=== PATIENT | female | born 2005 | race Caucasian/White ===

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

== ENCOUNTER 2023-01-08 19:10 | Emergency (ER) | payer MEDICAID, SELFPAY ==
[2023-01-08 19:20] VITALS: BP 154/85; PULSE 76; RESP 20; TEMP 36.8; O2SAT 96; BMI 37.8
[2023-01-08 19:31] LABS: Microscopic, Urine URINE MICROSCOPIC (MICROSCOPIC)
--- NOTE | 2023-01-08 19:35 | EXP.UTC ---
Discharge Plan Disposition Patient Disposition: Home, Self-Care Condition: Good Prescriptions Prescriptions: New cephalexin 500 mg capsule 500 mg PO BID 5 Days Qty: 10 0RF phenazopyridine [Pyridium] 200 mg tablet 200 mg PO Q8H 2 Days Qty: 6 0RF No Action Tubersol 5 tub. unit /0.1 mL solution 0.1 ml intradermal ONCE Qty: 0.1 0RF phentermine [Adipex-P] 37.5 mg tablet 37.5 mg PO DAILY Qty: 30 0RF Rx Instructions: must administer 30 minutes before or 1-2 hours after breakfast Referrals Follow up/Referrals: Kari Rudd PA [Primary Care Provider] - See instructions Activity Restrictions/Add. Instructions Additional Instructions/Restrictions: *Increase fluids. Water not Soda or Tea *Start antibiotic immediately and be sure to take as ordered for the FULL length of time although you should start to see improvement over the next 48 hours *Pyridium as needed Remember this medication will turn your urine . This is normal but it will stain what ever it gets on *You should not use Pyridium for more than 48 hours. If so , follow up with your primary physician to review urine culture and ensure that antibiotic is adequate for infection *Be SURE to follow up anytime for new or worsening symptoms with your family doctor. AND in 48 hours for urine culture results with your family doctor, if you do not have a doctor then you may call back to the [facility] for urine culture results and further treatment. We do recommend that you choose and establish care with a Primary Care Physician. ?AND follow up with them ?in 10-14 days to repeat UA to ensure infection is resolved and blood no longer present *Be sure to let your PCP know that we sent urine cultures from the [facility] so they can follow up to ensure that you area the on the correct antibiotic Call your doctor office and make appointment for 48 hours (2 days from today) ?to follow up and get the results of your urine culture and further treatment Clinical Impressions Clinical Impression: UTI (urinary tract infection) Qualifiers: Urinary tract infection type: site unspecified Hematuria presence: with hematuria Qualified Code(s): N39.0 - Urinary tract infection, site not specified; R31.9 - Hematuria, unspecified Instructions Patient Instructions: DI for Urinary Tract Infection (UTI), Urinary Tract Infection Discharge ED Provider: [place] [facility] [place] General Stated complaint: sore throat, fever Mode of Arrival: Ambulatory Source of Information: Patient Limitations: No Limitations Time Seen by Provider: 01/08/23 19:35 Description of Symptoms (Recalled from Triage Doc. by RN): PATIENT C/O SORE THROAT AND FEVER THAT STARTED TODAY AND BURNING WITH URINATION THAT STARTED LAST NIGHT HEENT Symptoms (Recalled from RN notes): Yes Resp Symptoms (Recalled from RN notes): No Skin Symptoms (Recalled from RN notes): No MS Symptoms (Recalled from RN notes): No Functional Status (Recalled from RN notes): WNL History of Present Illness Provider Complaint: Patient states that last night she started with some burning with urination and feeling of urgency and frequency, today she woke up having fever and sore throat States that this evening she wasnt feeling any better so she came in to get checked Related Data Previous Rx's Medication Instructions Recorded phentermine 37.5 mg tablet 37.5 mg PO DAILY #30 tabs 01/04/23 (Adipex-P) cephalexin 500 mg capsule 500 mg PO BID 5 days #10 caps 01/08/23 phenazopyridine 200 mg tablet 200 mg PO Q8H pain 2 days #6 tabs 01/08/23 (Pyridium) Allergies Allergy/AdvReac Type Severity Reaction Status Date / Time No Known Allergies Allergy Verified 01/04/23 14:31 Worker's Comp Is this a Worker's Comp case?: No [facility] Disclaimer: The information contained in this section may have been updated after the patient was seen, as this information can be updated by other users. Medical History (Reviewed 11/16/22 @ 15:06
[2023-01-08 19:40] VITALS: BP 154/85; PULSE 76; RESP 20; TEMP 36.8; O2SAT 96
[2023-01-08 19:40] LABS: UTC Strep Screen (Rapid) Negative (Negative)
[2023-01-08 19:41] LABS: Appearance,Urine SL CLOUDY (Clear); Blood, Urine TRACE-I (Negative); Color,Urine YELLOW (Yellow); Glucose,Urine (UA) Negative (Negative); Ketones,Urine TRACE (Negative); Leukocyte Esterase,Urine 1+ (Negative); Nitrate,Urine Negative (Negative); PH,Urine 6.5 (5.0-8.5); Protein,Urine TRACE (Negative); Specific Gravity, Urine 1.025 (1.005-1.030)
[2023-01-08 19:43] LABS: Bilirubin,Urine 1+ (Negative)
[2023-01-08 22:05] LABS: RBC,Urine Occasional #/hpf (0-3)
[2023-01-08 22:06] LABS: Bacteria,Urine 1+ /lpf
== END 2023-01-08 19:55 | disposition home or self-care (01) ==
PROVIDERS: Emergency Provider Nurse Practitioner; PCP Physician Assistant
DX: N39.0 Urinary tract infection, site not specified (principal); B96.89 Other specified bacterial agents as the cause of diseases classified elsewhere; R31.9 Hematuria, unspecified; R50.9 Fever, unspecified; R07.0 Pain in throat; J45.909 Unspecified asthma, uncomplicated
CPT/HCPCS: 81001; 87086; 87880; 99212; 99214; G0463

== ENCOUNTER 2023-03-01 15:03 | Emergency (ER) | payer MEDICAID, SELFPAY ==
[2023-03-01 15:10] VITALS: BP 108/69; PULSE 75; RESP 20; TEMP 37.3; O2SAT 96; BMI 33.0
--- NOTE | 2023-03-01 15:24 | EXP.UTC ---
Discharge Plan Disposition Patient Disposition: Home, Self-Care Condition: Good Prescriptions Prescriptions: New fluticasone propionate [Flonase Allergy Relief] 50 mcg/actuation spray,suspension 1 - 2 spray intranasal DAILY Qty: 16 0RF Rx Instructions: administer into each nostril daily No Action Tubersol 5 tub. unit /0.1 mL solution 0.1 ml intradermal ONCE Qty: 0.1 0RF phentermine [Adipex-P] 37.5 mg tablet 37.5 mg PO DAILY Qty: 30 0RF Rx Instructions: must administer 30 minutes before or 1-2 hours after breakfast Referrals Follow up/Referrals: Kari Rudd PA [Primary Care Provider] - See instructions Activity Restrictions/Add. Instructions Additional Instructions/Restrictions: Use Flonase as prescribed Watch areas on hands may spread to other areas of the body Follow up with Dermatology or Family Doctor if symptoms do not improve or if they worsen Return if needed Straight to ER if any life threatening symptoms Clinical Impressions Clinical Impression: Viral rash Instructions Patient Instructions: Hand, Foot, and Mouth Disease, Fluticasone Nasal [place] Discharge ED Provider: Jess Dolan [facility] General Stated complaint: poison Hali and Left ear pain Mode of Arrival: Ambulatory Source of Information: Patient Limitations: No Limitations Time Seen by Provider: 03/01/23 15:25 Description of Symptoms (Recalled from Triage Doc. by RN): PATIENT C/O SMALL BLISTER-LIKE AREAS TO HANDS AND FACE X 2 DAYS. PATIENT ALSO C/O RINGING IN RIGHT EAR WITH SOME DRAINAGE THAT HAS BEEN GOING ON FOR A WHILE HEENT Symptoms (Recalled from RN notes): Yes Resp Symptoms (Recalled from RN notes): No Skin Symptoms (Recalled from RN notes): Yes MS Symptoms (Recalled from RN notes): No Functional Status (Recalled from RN notes): WNL History of Present Illness Provider Complaint: Mother states that teen has been having some small red blister like areas popping up on her hands, arms and face around mouth that are itchy and painful at times with scratchy throat States that she has also been having some ringing in her left ear with pain at times and feels like it is draining Related Data Previous Rx's Medication Instructions Recorded phentermine 37.5 mg tablet 37.5 mg PO DAILY #30 tabs 02/06/23 (Adipex-P) fluticasone propionate 50 1 - 2 spray intranasal DAILY #16 03/01/23 mcg/actuation nasal grams spray,suspension (Flonase Allergy Relief) Allergies Allergy/AdvReac Type Severity Reaction Status Date / Time No Known Allergies Allergy Verified 02/06/23 16:39 Worker's Comp Is this a Worker's Comp case?: No [facility] Disclaimer: The information contained in this section may have been updated after the patient was seen, as this information can be updated by other users. Medical History Asthma Social History Smoking Status: Never smoker alcohol intake: never substance use type: denies use current occupational status: employed and student Travel in the last 8 weeks: None housing: house ROS Obtained: Yes All systems reviewed & no additional complaints except as documented and Yes Systems reviewed as appropriate & no additional complaints except as documented Constitutional Constitutional: Reports system reviewed and no additional complaints, except as documented and Reports as per HPI ENT Ears, Nose, Mouth, and Throat: Reports system reviewed and no additional complaints, except as documented, Reports as per HPI, Reports otalgia and Reports sore throat Cardiovascular Cardiovascular: Reports system reviewed and no additional complaints, except as documented Respiratory Respiratory: Reports system reviewed and no additional complaints, except as documented and Reports as per HPI Gastrointestinal Gastrointestingal: Reports system reviewed and no additional complaints, e
[2023-03-01 15:27] VITALS: BP 108/69; PULSE 75; RESP 20; TEMP 37.3; O2SAT 96
== END 2023-03-01 15:36 | disposition home or self-care (01) ==
PROVIDERS: Emergency Provider Nurse Practitioner; PCP Physician Assistant
DX: B08.4 Enteroviral vesicular stomatitis with exanthem (principal); J45.909 Unspecified asthma, uncomplicated
CPT/HCPCS: 99212; 99214; G0463

== ENCOUNTER 2023-07-28 15:09 | Emergency (ER) | payer MEDICAID, SELFPAY ==
[2023-07-28 15:20] VITALS: BP 128/75; PULSE 66; RESP 20; TEMP 36.9; O2SAT 98; BMI 38.9
--- NOTE | 2023-07-28 15:35 | ED_ITS ---
Discharge Plan Disposition Patient Disposition: Home, Self-Care Condition: Good Prescriptions Prescriptions: New piqjvdbmxvbvvec-xhbabrkow-UZ [Bromfed DM] 2-30-10 mg/5 mL syrup 10 ml PO Q4-6H PRN (Reason: cold symptoms) Qty: 200 0RF No Action Tubersol 5 tub. unit /0.1 mL solution 0.1 ml intradermal ONCE Qty: 0.1 0RF phentermine [Adipex-P] 37.5 mg tablet 37.5 mg PO DAILY Qty: 30 0RF Rx Instructions: must administer 30 minutes before or 1-2 hours after breakfast fluticasone propionate [Flonase Allergy Relief] 50 mcg/actuation spray,suspension 1 - 2 spray intranasal DAILY Qty: 16 0RF Rx Instructions: administer into each nostril daily Referrals Follow up/Referrals: Kari Rudd PA [Primary Care Provider] - See instructions Clinical Impressions Clinical Impression: Acute upper respiratory infection Instructions Patient Instructions: DI for Viral Upper Respiratory Infection -- Adult Discharge ED Provider: Jane Black [facility] [place] General Stated complaint: fever, stuffy nose, pain under eyes Mode of Arrival: Ambulatory Source of Information: Patient Limitations: No Limitations Time Seen by Provider: 07/28/23 15:35 Description of Symptoms (Recalled from Triage Doc. by RN): PATIENT C/O SORE THROAT, SINUS PRESSURE AND FEVER X 3 DAYS HEENT Symptoms (Recalled from RN notes): Yes Resp Symptoms (Recalled from RN notes): No Skin Symptoms (Recalled from RN notes): No MS Symptoms (Recalled from RN notes): No Functional Status (Recalled from RN notes): WNL History of Present Illness Provider Complaint: Pt reports cough, sore throat, sinus pressure and fever for the last 3 days. She states that she had a temp of 102.3 last night and then 99.3 this morning. She reports that she took a Tylenol 1 1/2 hrs ago. 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 Related Data Previous Rx's Medication Instructions Recorded phentermine 37.5 mg tablet 37.5 mg PO DAILY #30 tabs 02/06/23 (Adipex-P) fluticasone propionate 50 1 - 2 spray intranasal DAILY #16 03/01/23 mcg/actuation nasal grams spray,suspension (Flonase Allergy Relief) jmyufxfcxalalcs-twptpmvrgxmppzx-EO 10 ml PO Q4-6H PRN cold symptoms 07/28/23 2 mg-30 mg-10 mg/5 mL oral syrup #200 mL (Bromfed DM) Allergies Allergy/AdvReac Type Severity Reaction Status Date / Time No Known Allergies Allergy Verified 02/06/23 16:39 Worker's Comp Is this a Worker's Comp case?: No PFSH [facility] Disclaimer: The information contained in this section may have been updated after the patient was seen, as this information can be updated by other users. Medical History Asthma Social History Smoking Status: Never smoker alcohol intake: never substance use type: denies use current occupational status: employed and student Travel in the last 8 weeks: None housing: house ROS Obtained: Yes All systems reviewed & no additional complaints except as documented Constitutional Constitutional: Reports system reviewed and no additional complaints, except as documented, Reports fever(s) and Reports malaise Eyes Eyes: Reports system reviewed and no additional complaints, except as documented ENT Ears, Nose, Mouth, and Throat: Reports system reviewed and no additional complaints, except as documented, Reports nasal congestion, Reports nasal discharge, Reports sinus pain, Reports sinus pressure and Reports sore throat Cardiovascular Cardiovascular: Reports system reviewed and no additional complaints, except as documented Respiratory Respiratory: Reports system reviewed and no additional complaints, except as documented and Reports non-productive cough Gastrointestinal Gastrointestingal: Reports system reviewed and no additional complaints, except as documented Genitourinary Female Genitourinary: Reports system reviewed and no additional complaints, except as documented Musculoskeletal Musculoskeletal: Reports system reviewed and no additional complaints, except as documented Integumentary/Breasts Skin/Breast: Reports system reviewed and no additional complaints, except as documented Neurologic Neurologic: Reports system reviewed and no additional complaints, except as documented Endocrine Endocrine: Reports system reviewed and no additional complaints, except as documented Hematologic/Lymphatic Henatologic/Lymphatic: Reports system reviewed and no additional complaints, except as documented Allergic/Immunologic Allergic/Immunologic: Reports system reviewed and no additional complaints, except as documented Physical Exam General General appearance: alert Comment: ill appearing Head Head exam: atraumatic and normocephalic Eye Eye exam: Present normal appearance ENT ENT exam: Present mucous membranes moist Expanded ENT Exam External ear exam: Present normal external inspection Nose exam: Present sinus tenderness (frontal and maxillary) Nasal speculum exam: Bilateral: purulent discharge Mouth exam: Present normal external inspection and tongue normal Teeth exam: Present normal inspection Throat exam: Present tonsillar erythema Neck Neck exam: Present normal inspection Chest Chest inspection: Present normal inspection and symmetric chest wall rise Respiratory Respiratory exam: Present normal lung sounds bilaterally Cardiovascular Cardiovascular exam: Present regular rate, normal rhythm and normal heart sounds Abdominal Exam Abdominal exam: Present soft and normal bowel sounds Extremities Exam Extremities exam: Present normal inspection Back Exam Back exam: Present normal inspection Neurological Exam Neurological exam: Present alert and oriented X3 Psychiatric Psychiatric exam: Present normal affect and normal mood Skin Skin exam: Present warm, dry and intact Lymphatic Lymphatic Findings: no adenopathy Medical Decision Making Jesus Inquiry Pt receiving controlled substance: No Jesus was queried for this patient: No Vital Signs: 07/28/23 15:20 Temperature 98.5 F Temperature Source Oral Pulse Rate [Left Brachial] 66 Respiratory Rate 20 Blood Pressure [Left Arm] 128/75 Blood Pressure Mean [Left Arm] 92 Blood Pressure Source [Left Arm] Automatic Cuff Blood Pressure Position [Left Arm] Sitting 02 Sat by Pulse Oximetry 98 Oxygen Delivery Method Room Air Lab Data Lab results reviewed: Yes I reviewed the patient's lab results.
[2023-07-28 15:40] LABS: UTC Strep Screen (Rapid) Negative (Negative)
[2023-07-28 15:41] VITALS: BP 128/75; PULSE 66; RESP 20; TEMP 36.9; O2SAT 98
[2023-07-28 16:05] LABS: Adenovirus,PCR Not Detected (NotDetected); Coronavirus 19, PCR Not Detected (NotDetected); Coronavirus 229E Not Detected (NotDetected); Coronavirus NL63 Not Detected (NotDetected); Coronavirus OC43 Not Detected (NotDetected); Coronovirus HKU1,PCR Not Detected (NotDetected); Human Metapneumovirus Not Detected (NotDetected); Influenza A, PCR Not Detected (NotDetected); Influenza AH1, 2009 Not Detected (NotDetected); Influenza AH1, PCR Not Detected (NotDetected); Influenza AH3,PCR Not Detected (NotDetected); Influenza B, PCR Not Detected (NotDetected); Parainfluenza 1, PCR Not Detected (NotDetected); Parainfluenza 2, PCR Not Detected (NotDetected); Parainfluenza 3, PCR Not Detected (NotDetected); Parainfluenza 4, PCR Not Detected (NotDetected); Respiratory Syncytial Virus Not Detected (NotDetected)
[2023-07-28 17:22] LABS: Rhinovirus/Enterovirus Detected (NotDetected)
== END 2023-07-28 16:00 | disposition home or self-care (01) ==
PROVIDERS: Emergency Provider Nurse Practitioner Family; PCP Physician Assistant
DX: R05.9 Cough, unspecified (principal); B34.1 Enterovirus infection, unspecified; J06.9 Acute upper respiratory infection, unspecified
CPT/HCPCS: 87632; 87635; 87880; 99212; 99214; G0463

== ENCOUNTER 2023-08-05 13:29 | Emergency (ER) | payer MEDICAID, SELFPAY ==
[2023-08-05 14:20] VITALS: BP 123/82; PULSE 62; RESP 16; TEMP 36.7; O2SAT 100; BMI 37.1
--- NOTE | 2023-08-05 14:28 | ED_ITS ---
Discharge Plan Disposition Patient Disposition: Home, Self-Care Condition: Good Prescriptions Prescriptions: New azithromycin [Zithromax] 250 mg tablet 250 mg PO UD DOSE PK Qty: 6 0RF Rx Instructions: Take two (2) tablets today, then one (1) tablet days #2 thru #5 methylprednisolone 4 mg Tablets,Dose Pack 4 mg PO DIRECTED 6 Days Qty: 21 0RF Rx Instructions: Take 1 pack as directed for 6 days kljyeomsylvfqiw-sfjddeyxr-RZ [Bromfed DM] 2-30-10 mg/5 mL Syrup 5 ml PO Q6H PRN (Reason: Cough) Qty: 240 0RF No Action Tubersol 5 tub. unit /0.1 mL solution 0.1 ml intradermal ONCE Qty: 0.1 0RF phentermine [Adipex-P] 37.5 mg tablet 37.5 mg PO DAILY Qty: 30 0RF Rx Instructions: must administer 30 minutes before or 1-2 hours after breakfast fluticasone propionate [Flonase Allergy Relief] 50 mcg/actuation spray,suspension 1 - 2 spray intranasal DAILY Qty: 16 0RF Rx Instructions: administer into each nostril daily fdzqkhfzefapaep-kmhkgrwjt-NH [Bromfed DM] 2-30-10 mg/5 mL syrup 10 ml PO Q4-6H PRN (Reason: cold symptoms) Qty: 200 0RF Referrals Follow up/Referrals: Kari Rudd PA [Primary Care Provider] - See instructions Activity Restrictions/Add. Instructions Additional Instructions/Restrictions: Drink plenty of fluids. Take tylenol or ibuprofen for pain or fever. Take the medications as directed. Follow up with your regular doctor. GO TO THE ER FOR ANY WORSENING SYMPTOMS Clinical Impressions Clinical Impression: Sinusitis Stand Alone Forms Stand Alone Forms: Work/School Release Instructions Patient Instructions: DI for Sinusitis, Sinusitis Discharge ED Provider: Devyn Courtney [facility] General Stated complaint: pressure around eyes, fever Time Seen by Provider: 08/05/23 14:28 History of Present Illness Provider Complaint: She states that for the past 2 days she has had low grade fever, chills, malaise, and sinus congestion. Related Data Previous Rx's Medication Instructions Recorded phentermine 37.5 mg tablet 37.5 mg PO DAILY #30 tabs 02/06/23 (Adipex-P) fluticasone propionate 50 1 - 2 spray intranasal DAILY #16 03/01/23 mcg/actuation nasal grams spray,suspension (Flonase Allergy Relief) qftkdnybtghtcbi-pdepukozpebyezl-WP 10 ml PO Q4-6H PRN cold symptoms 07/28/23 2 mg-30 mg-10 mg/5 mL oral syrup #200 mL (Bromfed DM) azithromycin 250 mg tablet 250 mg PO UD DOSE PK #6 tabs 08/05/23 (Zithromax) ebpjddxoqwzipqu-zrdvknqoxzrbkja-ZL 5 ml PO Q6H PRN Cough #240 mL 08/05/23 2 mg-30 mg-10 mg/5 mL oral syrup (Bromfed DM) methylprednisolone 4 mg tablets in 4 mg PO DIRECTED 6 days #21 tabs 08/05/23 a dose pack Allergies Allergy/AdvReac Type Severity Reaction Status Date / Time No Known Allergies Allergy Verified 02/06/23 16:39 [facility] Disclaimer: The information contained in this section may have been updated after the patient was seen, as this information can be updated by other users. Medical History Asthma Social History Smoking Status: Never smoker alcohol intake: never substance use type: denies use current occupational status: employed and student Travel in the last 8 weeks: None housing: house ROS Obtained: Yes All systems reviewed & no additional complaints except as documented Constitutional Constitutional: Reports poor appetite Eyes Eyes: Reports system reviewed and no additional complaints, except as documented ENT Ears, Nose, Mouth, and Throat: Reports as per HPI Cardiovascular Cardiovascular: Reports system reviewed and no additional complaints, except as documented and Denies chest pain Respiratory Respiratory: Denies shortness of breath, Denies chest congestion, Reports cough, Denies stridor and Denies wheezing Gastrointestinal Gastrointestingal: Reports system reviewed and no additional complaints, except as documented; Denies abdominal pain, diarrhea or vomiting Musculoskeletal Musculoskeletal: Reports system reviewed and no additional complaints, except as documented and Denies arthralgias Integumentary/Breasts Skin/Breast: Reports system reviewed and no additional complaints, except as documented and Denies rash Neurologic Neurologic: Denies paresthesias Allergic/Immunologic Allergic/Immunologic: Denies wheezing Physical Exam General General appearance: alert and in no apparent distress Eye Eye exam: Present normal appearance, PERRL and EOMI ENT ENT exam: Present mucous membranes moist and normal external ear exam Expanded ENT Exam External ear exam: Present normal external inspection TM/Canal exam: Bilateral TM: erythema and bulging Nose exam: Absent sinus tenderness Nasal speculum exam: Bilateral: normal Mouth exam: Present normal external inspection; Absent drooling Teeth exam: Present normal inspection Throat exam: Present tonsillar erythema and tonsillomegaly Neck Neck exam: Present normal inspection, full ROM and trachea midline; Absent tenderness, lymphadenopathy or thyromegaly Chest Chest inspection: Present normal inspection and symmetric chest wall rise; Absent tenderness or rash Respiratory Respiratory exam: Present normal lung sounds bilaterally; Absent respiratory distress, wheezes, stridor or accessory muscle use Cardiovascular Cardiovascular exam: Present regular rate, normal rhythm and normal heart sounds Abdominal Exam Abdominal exam: Present soft; Absent distention, tenderness, guarding, rebound or rigidity Extremities Exam Extremities exam: Present normal inspection, full ROM and normal capillary refill; Absent tenderness or calf tenderness Back Exam Back exam: Present normal inspection and full ROM; Absent tenderness Neurological Exam Neurological exam: Present alert and oriented X3 Psychiatric Psychiatric exam: Present normal affect and normal mood Skin Skin exam: Present warm, dry, intact and normal color Lymphatic Lymphatic Findings: no adenopathy Medical Decision Making Medical Records Medical records reviewed: No I reviewed the patient's medical records. Jesus Inquiry Pt receiving controlled substance: No Medical Decision Narrative: she refused testing for influenza, strep and covid-19.
[2023-08-05 14:38] VITALS: BP 123/82; PULSE 62; RESP 16; TEMP 36.7; O2SAT 100
== END 2023-08-05 14:46 | disposition home or self-care (01) ==
PROVIDERS: Emergency Provider Nurse Practitioner Family; PCP Physician Assistant
DX: J01.90 Acute sinusitis, unspecified (principal); R50.9 Fever, unspecified; R05.9 Cough, unspecified; R09.81 Nasal congestion
CPT/HCPCS: 99212; 99214; G0463

== ENCOUNTER 2023-08-14 13:09 | Emergency (ER) | payer MEDICAID, SELFPAY ==
[2023-08-14 13:15] VITALS: BP 136/76; PULSE 84; RESP 18; TEMP 37.1; O2SAT 98; BMI 37.0
--- NOTE | 2023-08-14 13:28 | ED_ITS ---
Discharge Plan Disposition Patient Disposition: Home, Self-Care Condition: Good Prescriptions Prescriptions: New amoxicillin [amoxicillin] 875 mg tablet 875 mg PO Q12H Qty: 20 0RF wdrefatfergqrae-bvuwlmhmq-LW [Bromfed DM] 2-30-10 mg/5 mL Syrup 5 ml PO Q6H PRN (Reason: Cough) Qty: 240 0RF No Action Tubersol 5 tub. unit /0.1 mL solution 0.1 ml intradermal ONCE Qty: 0.1 0RF Referrals Follow up/Referrals: Kari Rudd PA [Primary Care Provider] - See instructions Activity Restrictions/Add. Instructions Additional Instructions/Restrictions: Drink plenty of fluids. Take tylenol or ibuprofen for pain or fever. Take the medications as directed. Follow up with your regular doctor. GO TO THE ER FOR ANY WORSENING SYMPTOMS Clinical Impressions Clinical Impression: Pharyngitis, COVID-19 Stand Alone Forms Stand Alone Forms: Work/School Release Instructions Patient Instructions: Sore Throat, DI for Pharyngitis/Tonsillopharyngitis -- Adult, DI for Viral Syndrome Discharge ED Provider: Devyn Courtney [facility] General Stated complaint: sore throat, cough, fever Mode of Arrival: Ambulatory Source of Information: Patient Limitations: No Limitations Time Seen by Provider: 08/14/23 13:28 Description of Symptoms (Recalled from Triage Doc. by RN): Pt's symptoms are sore throat, runny nose, cough, chills, and fever. HEENT Symptoms (Recalled from RN notes): Yes Resp Symptoms (Recalled from RN notes): No Skin Symptoms (Recalled from RN notes): No MS Symptoms (Recalled from RN notes): No Functional Status (Recalled from RN notes): n/a History of Present Illness Provider Complaint: She states that she has had sore throat, fever, cough, body aches, and malaise for the past 1 day. Related Data Previous Rx's Medication Instructions Recorded amoxicillin 875 mg tablet 875 mg PO Q12H #20 tabs 08/14/23 ztdaaqufszbpnww-ofbbintceeautnp-BA 5 ml PO Q6H PRN Cough #240 mL 08/14/23 2 mg-30 mg-10 mg/5 mL oral syrup (Bromfed DM) Allergies Allergy/AdvReac Type Severity Reaction Status Date / Time No Known Allergies Allergy Verified 08/14/23 13:26 Worker's Comp Is this a Worker's Comp case?: No [facility] Disclaimer: The information contained in this section may have been updated after the patient was seen, as this information can be updated by other users. Medical History Asthma Social History Smoking Status: Never smoker alcohol intake: never substance use type: denies use current occupational status: employed and student Travel in the last 8 weeks: None housing: house ROS Obtained: Yes All systems reviewed & no additional complaints except as documented Constitutional Constitutional: Reports chills and Reports fever(s) Eyes Eyes: Denies eye discharge ENT Ears, Nose, Mouth, and Throat: Reports as per HPI Cardiovascular Cardiovascular: Denies chest pain Respiratory Respiratory: Denies chest congestion and Reports cough Gastrointestinal Gastrointestingal: Reports nausea; Denies abdominal pain, constipation, cramping, diarrhea or vomiting Musculoskeletal Musculoskeletal: Denies arthralgias Integumentary/Breasts Skin/Breast: Denies rash Neurologic Neurologic: Denies paresthesias Physical Exam General General appearance: alert and in no apparent distress Head Head exam: atraumatic, normocephalic and normal inspection Eye Eye exam: Present normal appearance, PERRL and EOMI ENT ENT exam: Present mucous membranes moist and normal external ear exam Expanded ENT Exam TM/Canal exam: Bilateral TM: erythema and bulging Nose exam: Absent sinus tenderness Mouth exam: Present normal external inspection; Absent drooling Teeth exam: Present normal inspection Throat exam: Present tonsillar erythema, tonsillomegaly and tonsillar exudate Neck Neck exam: Present normal inspection, full ROM and trachea midline; Absent tenderness, meningismus or lymphadenopathy Chest Chest inspection: Present normal inspection and symmetric chest wall rise; Absent tenderness Respiratory Respiratory exam: Present normal lung sounds bilaterally; Absent respiratory distress, wheezes or stridor Cardiovascular Cardiovascular exam: Present regular rate and normal rhythm; Absent systolic murmur or diastolic murmur Abdominal Exam Abdominal exam: Present soft and normal bowel sounds; Absent distention, tenderness, guarding, rebound or rigidity Extremities Exam Extremities exam: Present normal inspection and normal capillary refill; Absent calf tenderness Back Exam Back exam: Present normal inspection and full ROM; Absent tenderness, CVA tenderness (R) or CVA tenderness (L) Neurological Exam Neurological exam: Present alert, oriented X3 and CN II-XII intact Psychiatric Psychiatric exam: Present normal affect and normal mood Skin Skin exam: Present warm, dry, intact and normal color Medical Decision Making Medical Records Medical records reviewed: No I reviewed the patient's medical records. Jesus Inquiry Pt receiving controlled substance: No Vital Signs: 08/14/23 13:15 Temperature 98.8 F Temperature Source Oral Pulse Rate [Right Radial] 84 Respiratory Rate 18 Blood Pressure [Right Arm] 136/76 Blood Pressure Mean [Right Arm] 96 Blood Pressure Source [Right Arm] Automatic Cuff Blood Pressure Position [Right Arm] Sitting 02 Sat by Pulse Oximetry 98 Oxygen Delivery Method Room Air Lab Data Lab results reviewed: Yes I reviewed the patient's lab results.
[2023-08-14 13:44] LABS: UTC Influenza A Antigen Negative (Negative); UTC Influenza B Antigen Negative (Negative)
[2023-08-14 13:45] LABS: UTC Strep Screen (Rapid) Negative (Negative)
--- NOTE | 2023-08-14 14:04 | XR_ITS ---
FINAL REPORT CLINICAL HISTORY: cough, congestion COMPARISON: None FINDINGS: Two views of the chest were obtained. The heart size and pulmonary vascularity are within normal limits. The mediastinum is normal. No acute pulmonary abnormality is identified. There is no pneumothorax. The bony thorax is intact. IMPRESSION: No active cardiopulmonary disease. Reviewed, Interpreted and Dictated by Fredrick Orellana III, MD Transcribed by Hayde Edge Authenticated and [facility]
[2023-08-14 14:51] LABS: Adenovirus,PCR Not Detected (NotDetected); Coronavirus 229E Not Detected (NotDetected); Coronavirus NL63 Not Detected (NotDetected); Coronavirus OC43 Not Detected (NotDetected); Coronovirus HKU1,PCR Not Detected (NotDetected); Human Metapneumovirus Not Detected (NotDetected); Influenza A, PCR Not Detected (NotDetected); Influenza AH1, 2009 Not Detected (NotDetected); Influenza AH1, PCR Not Detected (NotDetected); Influenza AH3,PCR Not Detected (NotDetected); Influenza B, PCR Not Detected (NotDetected); Parainfluenza 1, PCR Not Detected (NotDetected); Parainfluenza 2, PCR Not Detected (NotDetected); Parainfluenza 3, PCR Not Detected (NotDetected); Parainfluenza 4, PCR Not Detected (NotDetected); Respiratory Syncytial Virus Not Detected (NotDetected); Rhinovirus/Enterovirus Not Detected (NotDetected)
[2023-08-14 15:10] VITALS: BP 136/76; PULSE 84; RESP 18; TEMP 36.8; O2SAT 98
[2023-08-14 16:46] LABS: Coronavirus 19, PCR Detected (NotDetected)
== END 2023-08-14 15:10 | disposition home or self-care (01) ==
PROVIDERS: Emergency Provider Nurse Practitioner Family; PCP Physician Assistant
DX: U07.1 COVID-19 (principal); J02.9 Acute pharyngitis, unspecified; R50.9 Fever, unspecified; R05.9 Cough, unspecified
CPT/HCPCS: 71046; 87632; 87635; 87804; 87880; 99212; 99214; G0463

== ENCOUNTER 2024-06-12 17:00 | Emergency (ER) | payer MEDICAID, SELFPAY ==
[2024-06-12 17:13] VITALS: BP 119/69; PULSE 83; RESP 18; TEMP 36.7; O2SAT 98; BMI 38.2
--- NOTE | 2024-06-12 17:15 | ED_ITS ---
Discharge Plan Disposition Patient Disposition: Home, Self-Care Condition: Good Prescriptions Prescriptions: New amoxicillin 875 mg tablet 875 mg PO Q12H Qty: 20 0RF xdicojvjslmmcrr-crxuctrku-ML [Bromfed DM] 2-30-10 mg/5 mL Syrup 5 ml PO Q6H PRN (Reason: Cough) Qty: 240 0RF No Action Tubersol 5 tub. unit /0.1 mL solution 0.1 ml intradermal ONCE Qty: 0.1 0RF Referrals Follow up/Referrals: Kari Rudd PA [Primary Care Provider] - See instructions Activity Restrictions/Add. Instructions Additional Instructions/Restrictions: Drink plenty of fluids. Take tylenol or ibuprofen for pain or fever. Take the medications as directed. Follow up with your regular doctor. GO TO THE ER FOR ANY WORSENING SYMPTOMS Clinical Impressions Clinical Impression: Pharyngitis, Acute viral syndrome Stand Alone Forms Stand Alone Forms: Work/School Release Instructions Patient Instructions: Sore Throat, DI for Pharyngitis/Tonsillopharyngitis -- Adult Print Language Print Language: [place] Discharge ED Provider: Devyn Courtney [facility] General Stated complaint: fever, sore throat Mode of Arrival: Ambulatory Source of Information: Patient Time Seen by Provider: 06/12/24 17:15 Description of Symptoms (Recalled from Triage Doc. by RN): SORE THROAT, FEVER, BA, LOWER BACK PAIN, VOMITING HEENT Symptoms (Recalled from RN notes): Yes Resp Symptoms (Recalled from RN notes): Yes Skin Symptoms (Recalled from RN notes): No MS Symptoms (Recalled from RN notes): No Functional Status (Recalled from RN notes): WNL Related Data Previous Rx's ?Medication ?Instructions ?Recorded amoxicillin 875 mg tablet 875 mg PO Q12H #20 tabs 06/12/24 wkyotemnvyfkiey-rvgygpucswiebzh-HZ 5 ml PO Q6H PRN Cough #240 mL 06/12/24 2 mg-30 mg-10 mg/5 mL oral syrup (Bromfed DM) Allergies Allergy/AdvReac Type Severity Reaction Status Date / Time No Known Allergies Allergy Verified 10/15/23 14:01 Worker's Comp Is this a Worker's Comp case?: No [facility] Disclaimer: The information contained in this section may have been updated after the patient was seen, as this information can be updated by other users. Medical History Asthma Social History Smoking Status: Never smoker alcohol intake: never substance use type: denies use current occupational status: employed and student Travel in the last 8 weeks: None housing: house Have you lived/traveled outside [place] in past 30 days?: No Contact w/someone who lives/traveled outside [place] past 30 days?: No Exposure to someone with infectious disease in past 14 days?: No Do you have a fever (greater than 100.4 F or 38 C)?: No Have you tested positive for COVID-19: No Exposed to someone with COVID-19 in past 14 days?: No Do you have a sore throat?: Yes Do you have a cough?: No Do you have any weakness?: No Do you have any diarrhea?: No Are you experiencing any unusual bleeding?: No Do you have any muscle aches/pain?: No Do you have any abdominal pain?: No Are you experiencing loss of taste or smell?: No ROS Obtained: Yes All systems reviewed & no additional complaints except as documented Constitutional Constitutional: Reports chills and Reports fever(s) Eyes Eyes: Denies eye discharge ENT Ears, Nose, Mouth, and Throat: Reports as per HPI Cardiovascular Cardiovascular: Denies chest pain Respiratory Respiratory: Denies chest congestion and Reports cough Gastrointestinal Gastrointestingal: Reports nausea; Denies abdominal pain, constipation, cramping, diarrhea or vomiting Musculoskeletal Musculoskeletal: Denies arthralgias Integumentary/Breasts Skin/Breast: Denies rash Neurologic Neurologic: Denies paresthesias Physical Exam General General appearance: alert and in no apparent distress Head Head exam: atraumatic, normocephalic and normal inspection Eye Eye exam: Present normal appearance, PERRL and EOMI ENT ENT exam: Present mucous membranes moist and normal external ear exam Expanded ENT Exam TM/Canal exam: Bilateral TM: erythema and bulging Nose exam: Absent sinus tenderness Mouth exam: Present normal external inspection; Absent drooling Teeth exam: Present normal inspection Throat exam: Present tonsillar erythema, tonsillomegaly and tonsillar exudate Neck Neck exam: Present normal inspection, full ROM and trachea midline; Absent tenderness, meningismus or lymphadenopathy Chest Chest inspection: Present normal inspection and symmetric chest wall rise; Absent tenderness Respiratory Respiratory exam: Present normal lung sounds bilaterally; Absent respiratory distress, wheezes, stridor or accessory muscle use Cardiovascular Cardiovascular exam: Present regular rate and normal rhythm; Absent systolic murmur or diastolic murmur Abdominal Exam Abdominal exam: Present soft and normal bowel sounds; Absent distention, tenderness, guarding, rebound or rigidity Extremities Exam Extremities exam: Present normal inspection and normal capillary refill; Absent calf tenderness Back Exam Back exam: Present normal inspection and full ROM; Absent tenderness, CVA tenderness (R) or CVA tenderness (L) Neurological Exam Neurological exam: Present alert, oriented X3 and CN II-XII intact Psychiatric Psychiatric exam: Present normal affect and normal mood Skin Skin exam: Present warm, dry, intact and normal color Medical Decision Making Medical Records Medical records reviewed: No I reviewed the patient's medical records. Screening: Per USPSTF and CDC recommendations, given the prevalence of disease in our region, it is our hospital?s policy to screen for HIV and viral Hepatitis for all patients aged 18 and over and those with ongoing risk factors. Jesus Inquiry Pt receiving controlled substance: No Vital Signs: 06/12/24 17:13 Temperature 98.1 F Temperature Source Oral Pulse Rate [Left Brachial] 83 Respiratory Rate 18 Blood Pressure [Left Arm] 119/69 Blood Pressure Mean [Left Arm] 85 02 Sat by Pulse Oximetry 98 Lab Data Lab results reviewed: Yes I reviewed the patient's lab results.
[2024-06-12 17:23] LABS: UTC Strep Screen (Rapid) Negative (Negative)
[2024-06-12 17:53] VITALS: BP 119/69; PULSE 83; RESP 18; TEMP 36.7
[2024-06-12 18:00] LABS: Coronavirus 19, PCR Not Detected (NotDetected); Influenza A, PCR Not Detected (NotDetected); Influenza B, PCR Not Detected (NotDetected)
== END 2024-06-12 17:56 | disposition home or self-care (01) ==
PROVIDERS: Emergency Provider Nurse Practitioner Family; PCP Physician Assistant
DX: J02.9 Acute pharyngitis, unspecified (principal); B34.9 Viral infection, unspecified
CPT/HCPCS: 87636; 87880; 99213; G0381

== ENCOUNTER 2024-08-24 14:00 | Outpatient (CLI) | payer MEDICAID, SELFPAY | END 2024-08-24 23:59 | disposition home or self-care (01) | LOC: LAB.DROPOF 08-25 10:45 | PROVIDERS: PCP Nurse Practitioner; Visit Provider Nurse Practitioner | DX: R35.0 Frequency of micturition (principal) | CPT/HCPCS: 87086; 87088; 87186 ==

== ENCOUNTER 2024-09-08 16:13 | Emergency (ER) | payer MEDICAID, SELFPAY ==
[2024-09-08 16:17] VITALS: BP 132/78; PULSE 76; RESP 18; TEMP 36.6; O2SAT 100; BMI 37.8
--- NOTE | 2024-09-08 16:25 | ED_ITS ---
<Statement entered by Lisa Laguerre MD - 09/08/24 23:11> I was consulted by the NANETTE, and we discussed the complexity of the problems being addressed. I approved the treatment and management plan for this patient's care in the emergency department, thus performing a substantive portion of the medical decision making. Lisa Laguerre MD, HELEN, FACEP Discharge Plan Disposition Patient Disposition: Home, Self-Care Condition: Good Prescriptions Prescriptions: New sulfamethoxazole-trimethoprim [Bactrim DS] 800-160 mg tablet 1 tab PO BID 5 Days Qty: 10 0RF ondansetron 4 mg tablet,disintegrating 4 mg PO QID PRN (Reason: nausea and vomiting) Qty: 10 0RF No Action Tubersol 5 tub. unit /0.1 mL solution 0.1 ml intradermal ONCE Qty: 0.1 0RF phenazopyridine [Pyridium] 200 mg tablet 200 mg PO Q8H 2 Days Qty: 6 0RF nitrofurantoin monohyd/m-cryst [Macrobid] 100 mg capsule 100 mg PO Q12H 7 Days Qty: 14 0RF Rx Instructions: must administer with a meal/food Referrals Follow up/Referrals: Kari Rudd PA [Primary Care Provider] - See instructions Activity Restrictions/Add. Instructions Additional Instructions/Restrictions: I have sent a new prescription into your pharmacy. Please take your antibiotic till its gone. I have also sent in nausea medicine to your pharmacy. If you have continued new or worsening signs or symptoms follow-up with your PCP return to the ER as needed. Clinical Impressions Clinical Impression: Urinary tract infectious disease Nausea & vomiting Qualifiers: Vomiting type: unspecified Qualified Code(s): R11.2 - Nausea with vomiting, unspecified Print Language Print Language: Arabic Discharge ED Provider: Lisa Laguerre General Adult HPI General Chief complaint: Nausea/Vomiting/Diarrhea Stated complaint: Vomiting,chills,diffucilty urinating Time Seen by Provider: 09/08/24 16:25 Mode of Arrival: Ambulatory Source of Information: Patient Description of Symptoms (Recalled from ER Triage Doc. by RN): Pt presents for evaluation of vomiting, chills, and has the urge to void but doesn't. Pt states she was diagnosed with a UTI 1 week ago and completed the antibiotic. History of Present Illness HPI narrative: Patient presents for evaluation of dysuria nausea and vomiting. Patient was recently treated for a urinary tract infection with Macrobid. Patient has finished her Macrobid however she continues to have symptoms of burning and pressure and today had nausea and vomiting. She has constitutional symptoms chills but has no known fever. Denies chest pain shortness of breath hemoptysis hematochezia melena hematemesis diarrhea. Related Data Previous Rx's ?Medication ?Instructions ?Recorded nitrofurantoin 100 mg PO Q12H 7 days #14 caps 08/24/24 monohydrate/macrocrystals 100 mg capsule (Macrobid) phenazopyridine 200 mg tablet 200 mg PO Q8H 2 days #6 tabs 08/24/24 (Pyridium) ondansetron 4 mg disintegrating 4 mg PO QID PRN nausea and 09/08/24 tablet vomiting #10 tabs sulfamethoxazole 800 1 tab PO BID 5 days #10 tabs 09/08/24 mg-trimethoprim 160 mg tablet (Bactrim DS) Allergies Allergy/AdvReac Type Severity Reaction Status Date / Time No Known Allergies Allergy Verified 08/24/24 14:16 [facility] Disclaimer: The information contained in this section may have been updated after the patient was seen, as this information can be updated by other users. Medical History Asthma Social History Smoking Status: Unknown if ever smoked alcohol intake: never substance use type: denies use current occupational status: employed and student Travel in the last 8 weeks: None housing: house Have you lived/traveled outside [place] in past 30 days?: No Contact w/someone who lives/traveled outside [place] past 30 days?: No Exposure to someone with infectious disease in past 14 days?: No Do you have a fever (greater than 100.4 F or 38 C)?: No Have you tested positive for COVID-19: No Exposed to someone with COVID-19 in past 14 days?: No Do you have a sore throat?: No Do you have a cough?: No Do you have any weakness?: No Do you have any diarrhea?: No Are you experiencing any unusual bleeding?: No Do you have any muscle aches/pain?: No Do you have any abdominal pain?: No Are you experiencing loss of taste or smell?: No Other Medical History Have you received the Flu Vaccine for this season: No Have you received the Pneumonia Vaccine: No ROS Obtained: Yes Systems reviewed as appropriate & no additional complaints except as documented Physical Exam General General appearance: alert and in no apparent distress Respiratory Respiratory exam: Present normal lung sounds bilaterally Cardiovascular Cardiovascular exam: Present regular rate Neurological Exam Neurological exam: Present alert and oriented X3 Medical Decision Making Medical Records Medical records reviewed: Yes I reviewed the patient's medical records. Screening: Per USPSTF and CDC recommendations, given the prevalence of disease in our region, it is our hospital?s policy to screen for HIV and viral Hepatitis for all patients aged 18 and over and those with ongoing risk factors. Jesus Inquiry Pt receiving controlled substance: No Vital Signs: 09/08/24 16:17 09/08/24 18:01 Temperature 97.8 F 98.0 F Temperature Source Oral Oral Pulse Rate 76 Pulse Rate [Right] 76 Respiratory Rate 18 16 Blood Pressure 126/70 Blood Pressure [Right Arm] 132/78 Blood Pressure Mean [Right Arm] 96 Blood Pressure Source Automatic Cuff Blood Pressure Source [Right Arm] Automatic Cuff Blood Pressure Position Sitting Blood Pressure Position [Right Arm] Sitting 02 Sat by Pulse Oximetry 100 Oxygen Delivery Method Room Air Room Air Lab Data Lab results reviewed: Yes I reviewed the patient's lab results. Lab Results 09/08/24 16:21: SARS-CoV-2 (PCR) Not detected, Influenza A Untype (PCR) Not detected, Influenza Type B (PCR) Not detected 09/08/24 16:42: Urine Color Yellow, Urine Appearance Clear, Urine pH 7.5, Ur Specific [place] 1.020, Urine Protein Trace, Urine Glucose (UA) Negative, Urine Ketones Negative, Urine Blood Negative, Urine Nitrate Positive A, Urine Bilirubin Negative, Urine Urobilinogen 0.2, Ur Leukocyte Esterase Trace, Urine RBC None, Urine WBC 10-20, Ur Squamous Epith Cells 10-20, Urine Bacteria 4+ Orders (Tests/Meds): ED MEDICATIONS Discontinued Medications Generic Name Dose Route Start Last Admin Trade Name Freq PRN Reason Stop Dose Admin Ondansetron HCl 4 mg 09/08/24 16:40 09/08/24 16:46 Ondansetron 4mg Odt SL 09/08/24 16:41 4 mg ONCE ONE Administration ORDERS Category Date Time Status Rapid PCR Covid and Flu A/B Stat Lab 09/08/24 16:21 Completed Urinalysis and Microscopic Stat Lab 09/08/24 16:42 Completed Urine Culture Stat Micro 09/08/24 16:42 Received Medical Decision Narrative: In summary patient is a 19-year-old female who presents to the emergency de partment for evaluation of dysuria nausea vomiting. Patient is hemodynamic stable with blood pressure 132/78 heart rate 76 normal sinus rhythm on the bedside monitor breathing 18 times a minute satting at 100% room air upon arrival, afebrile at 97.8. Zickel exam is remarkable for mild suprapubic discomfort on palpation but no acute focal tenderness no rebound no guarding no rigidity normal bowel sounds.. Differential diagnosis includes recurrent urinary tract infection versus gastroenteritis versus constipation etc. Initial workup will be conducted with urinalysis for now.. Initial interventions include Toradol Tylenol Zofran. Initial workup reviewed by me and her urinalysis is positive for trace protein nitrite positive leukocyte Estrace trace and microscopic exam shows no red blood cells 10-20 white cells 10-20 epithelial cells 4+ bacteria consistent with urinary tract infection COVID and flu were negative.. Upon repeat evaluation patient reports significant improvement in her symptoms after initial intervention. Given this patient is appropriate for discharge with a prescription for Bactrim and Zofran and strict return precautions. Critical Care Critical Care Time Critical Care Time: No
[2024-09-08 16:26] LABS: Coronavirus 19, PCR Not Detected (NotDetected); Influenza A, PCR Not Detected (NotDetected); Influenza B, PCR Not Detected (NotDetected)
[2024-09-08 16:46] LABS: Microscopic, Urine URINE MICROSCOPIC (MICROSCOPIC)
[2024-09-08] MEDS: ONDANSETRON 4MG ODT 4 MG SL (16:46)
[2024-09-08 17:00] LABS: Appearance,Urine CLEAR (Clear); Bilirubin,Urine Negative (Negative); Blood, Urine Negative (Negative); Color,Urine YELLOW (Yellow); Glucose,Urine (UA) Negative (Negative); Ketones,Urine Negative (Negative); Leukocyte Esterase,Urine TRACE (Negative); Nitrate,Urine POSITIVE (Negative); PH,Urine 7.5 (5.0-8.5); Protein,Urine TRACE (Negative); Urobilinogen,Urine 0.2 EU/dl (0.2)
[2024-09-08 17:47] LABS: Bacteria,Urine 4+ /lpf
[2024-09-08 18:01] VITALS: BP 126/70; PULSE 76; RESP 16; TEMP 36.7; O2SAT 99
--- NOTE | 2024-09-10 08:25 | PC.NURSE ---
I spoke with Dr. Ye about positive urine culture showing E.coli. Pt was sent MD ailyn states this is an acceptable treatment.
== END 2024-09-08 18:01 | disposition home or self-care (01) ==
PROVIDERS: Emergency Provider Student in an Organized Health Care Education/Training Program; PCP Physician Assistant
DX: N39.0 Urinary tract infection, site not specified (principal); R30.0 Dysuria; R11.2 Nausea with vomiting, unspecified; R30.9 Painful micturition, unspecified; R68.83 Chills (without fever); Z83.3 Family history of diabetes mellitus
CPT/HCPCS: 81001; 87086; 87088; 87186; 87636; 99283; Q0162

== ENCOUNTER 2024-09-09 14:19 | Outpatient (CLI) | payer MEDICAID, SELFPAY ==
[2024-09-09 16:47] LABS: HCG,Quantitative < 2 mIU/ml (0-5.42)
[2024-09-09 18:49] LABS: HIV Combo NEGATIVE (Negative)
[2024-09-09 18:57] LABS: Hepatitis C Ab Qual. W/ RFX NEGATIVE (Negative)
[2024-09-09 22:05] LABS: RPR W/RFX Titers Nonreactive (Nonreactive)
[2024-09-10 08:13] LABS: Progesterone 0.3 ng/mL (.)
== END 2024-09-09 23:59 | disposition home or self-care (01) ==
LOC: LAB 14:20
PROVIDERS: PCP Physician Assistant; Visit Provider Obstetrics & Gynecology
DX: Z11.3 Encounter for screening for infections with a predominantly sexual mode of transmission (principal); E28.2 Polycystic ovarian syndrome; N92.6 Irregular menstruation, unspecified
CPT/HCPCS: 84144; 84702; 86592; 86803; 87389

== ENCOUNTER 2024-09-11 13:07 | Outpatient (CLI) | payer MEDICAID, SELFPAY | END 2024-09-11 23:59 | disposition home or self-care (01) | LOC: LAB.DROPOF 09-12 10:32 | PROVIDERS: PCP Nurse Practitioner Family; Visit Provider Nurse Practitioner Family | DX: R30.0 Dysuria (principal); R31.9 Hematuria, unspecified | CPT/HCPCS: 87086 ==

== ENCOUNTER 2024-09-22 09:36 | Outpatient (CLI) | payer MEDICAID, SELFPAY ==
--- NOTE | 2024-09-22 10:00 | US_ITS ---
FINAL REPORT TECHNIQUE: Ultrasound images of the kidneys were obtained. CLINICAL HISTORY: Flank pain for over a month // constant UTIs COMPARISON: None FINDINGS: RENAL ULTRASOUND Exam is limited by body habitus. Limited images of the liver parenchyma demonstrate normal echogenicity. The right kidney measures 11.2 cm in length. It is normal echogenicity. There is no hydronephrosis. The left kidney measures 12.1 cm in length. It is normal echogenicity. There is no hydronephrosis. IMPRESSION: Normal renal ultrasound. Reviewed, Interpreted and Dictated by Filiberto Jackson MD Transcribed by Michelle Gaines Authenticated and . [facility]
== END 2024-09-22 23:59 | disposition home or self-care (01) ==
LOC: RAD 09:37
PROVIDERS: PCP Nurse Practitioner Family; Visit Provider Nurse Practitioner Family
DX: R31.9 Hematuria, unspecified (principal); R10.9 Unspecified abdominal pain
CPT/HCPCS: 76770

== ENCOUNTER 2024-11-24 15:20 | Outpatient (CLI) | payer MEDICAID, SELFPAY | END 2024-11-24 23:59 | disposition home or self-care (01) | LOC: LAB.DROPOF 11-25 10:08 | PROVIDERS: PCP Nurse Practitioner Family; Visit Provider Nurse Practitioner Family | DX: N39.0 Urinary tract infection, site not specified (principal) | CPT/HCPCS: 87086; 87088; 87186 ==